=== PATIENT | male | born 1995 ===

== ENCOUNTER 2021-04-13 14:12 | Emergency (ER) | payer OTHER ==
[2021-04-13 14:23] VITALS: TEMP 98.6
[2021-04-13] MEDS ORDERED: LIDOCAINE 1% INJ 10MG/ML (20 ML MDV) SQ ONE ×2 (14:24→16:31)
[2021-04-13] MEDS ORDERED: MORPHINE SULFATE 4 MG/ML SYRINGE IVP STA ×3 (14:26→17:48)
[2021-04-13] MEDS ORDERED: DIPH,PERTUS(ACELL)TETVAC-LF 0.5 ML VIAL IM ONE (14:50)
--- NOTE | 2021-04-13 14:55 | XR ---
EXAMINATION TYPE: XR hand complete RT DATE OF EXAM: 04/13/2021 COMPARISON: NONE HISTORY: 25-year-old male table saw injury to the fingers. Pain. TECHNIQUE: 3 views FINDINGS: There is table saw related soft tissue injury to the third, fourth, and fifth fingers with deep lacer ations and associated comminuted fractures of the third and fourth distal phalangeal shafts and chacho . Oblique minimally offset fracture at the neck of the fifth middle phalanx. No retained radiopaque f oreign body identified. IMPRESSION: 1. Table saw related soft tissue injury/lacerations to the third, fourth, and fifth fingers. 2. Underlying comminuted fractures of the third and fourth distal phalangeal shafts and chacho. 3. Minimally offset oblique fracture at the neck of the fifth middle phalanx.
[2021-04-13 17:06] VITALS: BP 109/60; PULSE 76; RESP 16
--- NOTE | 2021-04-13 17:16 | ED ---
Wound/Laceration HPI - General Chief Complaint: Wound/Laceration Stated Complaint: Hand lac Source: patient, EMS Mode of arrival: EMS Limitations: no limitations - History of Present Illness Initial Comments: Patient is a 25-year-old male that presents to the emergency department with a table saw injury to the right third fourth and fifth digit. He notes he was building door frame door jamb's when he went to the table saw and caught his 3 fingers on the blade was still moving. Patient received 100 g of fentanyl via EMS. He did not appear to be in any distress while sitting up in bed during the exam interview. Patient denied any other complaint or issues. He had full range of motion of his digits minus the tips of his fingers. He had lacerations across the distal aspect of his third and fourth finger and a laceration of the fifth finger in the middle. He denied any chest pain shortness of breath headache nausea vomiting diarrhea constipation fever fatigue chills. - Related Data Previous Rx's Medication Instructions Recorded HYDROcodone/APAP 10-325MG [[place] 1 tab PO Q6HR PRN 3 Days #12 tab 04/13/21 10-325] cefaDROXiL [Duricef] 500 mg PO Q12HR 10 Days #20 cap 04/13/21 Allergies Allergy/AdvReac Type Severity Reaction Status Date / Time No Known Allergies Allergy Verified 04/13/21 15:01 Review of Systems ROS Statement: Those systems with pertinent positive or pertinent negative responses have been documented in the HPI. ROS Other: All systems not noted in ROS Statement are negative. Past Medical History Past Medical History: No Reported History History of Any Multi-Drug Resistant Organisms: None Reported Additional Past Surgical History / Comment(s): right clavicle surgery, plate put in Past Psychological History: No Psychological Hx Reported Smoking Status: Never smoker Past Alcohol Use History: Rare Past Drug Use History: Marijuana General Exam Limitations: no limitations General appearance: alert, in no apparent distress Head exam: Present: atraumatic, normocephalic, normal inspection Eye exam: Present: normal appearance, PERRL, EOMI. Absent: scleral icterus, conjunctival injection, periorbital swelling Neck exam: Present: normal inspection Respiratory exam: Present: normal lung sounds bilaterally. Absent: respiratory distress, wheezes, rales, rhonchi, stridor Cardiovascular Exam: Present: regular rate, normal rhythm, normal heart sounds. Absent: systolic murmur, diastolic murmur, rubs, gallop, clicks Right Hand Wrist exam: Present: laceration (To the distal aspect of the third and fourth digit and the medial aspect of the fifth digit, nail avulsion of the third and fourth digit.). Absent: normal inspection Neurological exam: Present: alert, oriented X3 Psychiatric exam: Present: normal affect, normal mood Skin exam: Present: warm, dry, intact, normal color. Absent: rash Course Vital Signs 04/13/21 14:14 Temperature 98.6 F Pulse Rate 63 Respiratory 18 Rate Blood Pressure 114/72 O2 Sat by Pulse 100 Oximetry Procedures - Laceration Laceration #1 Consent Obtained: verbal consent Indication: laceration Site: hand (Right fifth finger) Size (cm): 5 Description: linear, irregular Depth: simple, single layer Anesthetic Used: lidocaine 1% Anesthesia Technique: nerve block Amount (mls): 4 Pre-repair: irrigated extensively Type of Sutures: nylon Size of Sutures: 5-0 Number of Sutures: 4 Technique: simple, interrupted Complications: bleeding Patient Tolerated Procedure: well, no complications Laceration #2 Consent Obtained: verbal consent Indication: laceration Site: hand (Right fourth finger) Size (cm): 4 Description: irregular Depth: simple, single layer Anesthetic Used: lidocaine 1% Anesthesia Technique: nerve block Amount (mls): 6 Pre-repair: irrigated extensively Type of Sutures: nylon Size of Sutures: 5-0 Number of Sutures: 8 Technique: simple, interrupted Complications: bleeding Patient Tolerated Procedure: well, no complications Laceration #3 Consent Obtained: verbal consent Site: hand (Right third finger) Size (cm): 6 Description: irregular Depth: simple, single layer Anesthetic Used: lidocaine 1% Anesthesia Technique: nerve block Amount (mls): 6 Pre-repair: irrigated extensively Type of Sutures: nylon Size of Sutures: 5-0 Number of Sutures: 8 Technique: simple, interrupted Complications: bleeding Patient Tolerated Procedure: well, no complications Medical Decision Making - Medical Decision Making 25-year-old male with right third fourth and fifth finger laceration from table saw. X-ray of the right hand, 4 mg of morphine, tetanus vaccine, lidocaine, 2 g of Ancef ordered. X-ray shows underlying comminuted fractures of the third and fourth distal phalangeal shaft tops. Minimally offset oblique fracture at the neck of the fifth middle phalanx. Harsha yus was consulted from orthopedics and states that they will follow-up outpatient tomorrow and to send patient home with Duricef and pain medication. Case discussed with Dr. De La Vega, patient can discharge the follow-up to orthopedist. - Radiology Data Radiology results: report reviewed, image reviewed X-ray of the right hand: Table saw a related soft tissue injury laceration to the third fourth and fifth fingers. Underlying comminuted fractures of the third and fourth distal phalangeal shaft and tops. Minimally offset oblique fracture at the neck of the fifth middle phalanx. Disposition Clinical Impression: Laceration, Open fracture Disposition: HOME SELF-CARE Condition: Stable Instructions (If sedation given, give patient instructions): Laceration (ED), Care For Your Stitches (ED) Additional Instructions: Please return to the Emergency Department if symptoms worsen or any other concerns. Follow-up with orthopedics tomorrow in office. Dr. Frederick's his office. Take antibiotics as prescribed until complete. Take pain medication as prescribed. Keep area as clean and is dry as possible. Is patient prescribed a controlled substance at d/c from ED?: No Referrals: None,Stated [Primary Care Provider] - 1-2 days José Miguel Darby DO [Doctor of Osteopathic Medicine] - 1-2 days Time of Disposition: 17:37
== END 2021-04-13 18:05 | disposition home or self-care (01) ==
LOC: EC 14:12
DX: S62.632B Displaced fracture of distal phalanx of right middle finger, initial encounter for open fracture (principal); S62.634B Displaced fracture of distal phalanx of right ring finger, initial encounter for open fracture; S62.636B Displaced fracture of distal phalanx of right little finger, initial encounter for open fracture; Z23 Encounter for immunization; W31.2XXA Contact with powered woodworking and forming machines, initial encounter; F12.90 Cannabis use, unspecified, uncomplicated
CPT/HCPCS: 73130; 90715; 12005; 99284; 96365; 96375 ×2; 90471; J2270; J0690; J2001

== ENCOUNTER 2021-04-18 09:56 | Day surgery (SDC) | payer OTHER ==
[2021-04-14 15:46] VITALS: BMI 31.4
--- NOTE | 2021-04-18 06:49 | P.HPOR ---
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 He presents to the office following a traumatic finger injury sustained on 04/13/2021 when his hand got caught in a table saw. He did go to the [facility] emergency room the same day where he received xrays, the injury was cleaned, sutured, and bandaged. He was then referred to Dr. Darby for further evaluation. He is currently on a prescription of [place] 10mg for pain management with good effect. He describes his pain as a 1/10 today in the office. The injury is acute in nature and the patients 3rd, 4th, and 5th fingers are the ones that sustained the injury. Patient denies any issues with his bowels or incontinence. Patient denies being a smoker but does use tobacco chew. Mr. Joseph's only other prior surgery was a collar bone procedure done in 2010, which he has since recovered from. He is otherwise doing well. The patient's past medical history; past surgical history; family history; medicines; allergies and social history have been reviewed and are as stated elsewhere in the chart. 14 points review of systems completed and as stated in HPI, all other systems reviewed are negative. PHYSICAL EXAM: Patient is alert and oriented 3 appears well-nourished well-hydrated is in no acute distress. They do not appear septic. There is TTP Lower extremities with 5 out of 5 strength in all major muscle groups Upper extremities show 5/5 strength in all major muscle groups. Except for R hand where his ulnar three digits M/R/Sm have distal tip partial amputations. There is FROM that is painless of the b/l UE and LE in all major joints. DIP and PIP as well as MCP joits mobile. Except for the injuried. They are intact to light touch sensation in L2 to S1 nerve distribution as well as the C5-T1 distribution DTR 2/4 all upper and lower extremities Patient has palpable dorsalis pedis was posterior tibial pulses. Palpable Rad Ulnar pulses b/l Compartments are soft and compressible. Patient shows a negative Homans Cranial nerves II through XII are grossly intact. Special Testing: Right hand: M/R/Sm finger partial distal tip amputations at the level of the distal phalynx. No current exposed bone in any fingers. There is a nail bed avulsion of the middle finger as well as distal tuft fractures of the M and R fingers. Sm finger has a middle phalnyx fracture at the distal aspect. Non displaced. There is good soft tissues in this area despite injury and good cap refill to these areas. There is sensation to LT and to pinprick distal tips of all fingers at this time. RADIOGRAPHS: XRay taken on 04/13/21 of right hand was reviewed by Dr. Cage and indicates: Distal tuft fractures, open of the M and R fingers. Middle is comminuted with bone voids. The ring finger fracture is a large fragmet distally and will reduce with fixation of the tuft likely. The small finger fracture is at the distal end of the middle phalynx. No other malalignment. No othe fractures or dislocations noted. ASSESSMENT: 1. Traumatic table saw injury to the 3rd, 4th, and 5th digits on the right hand. 2. Right middle finger and ring finger Partial distal tip truamatic amputation. 3. Right small finger complex laceration with middle phalynx fracture PLAN: All options were reviewed today, we decided the best course of action would be: - We will plan on a revision amputation and reconstruction of the 3rd, 4th, and 5th digits on the right hand. This is scheduled to be done on 04/18/2021. - Follow up for further evaluation of his right hand after the procedure. -Ordered a CBC, BMP, EKG, and LAR discussed risks and benefits of the procedure the patient including risk of bleeding infection damage to surrounding tissues and risk of reoperation risk of anesthesia up to and including he is willing to assume these risks and all of the other risks of surgery. Orthopedic Surgery Risk Review Billy Joseph is a 75-year-old male presenting for evaluation of sudden onset right hand pain, after table saw injury. It was my pleasure to have seen and examined Billy. In our visit today we have had a chance to go over subjective complaints, physical examination findings and treatments including the natural course history without intervention and various interventional options. His imaging demonstrates comminuted tuft fractures middle finger finger as well as ring finger with distal middle phalanx fracture right small finger. On physical exam, Billy demonstrates pain with motion of right hand due to nail bed injuries as well as distal tuft fractures and partial amputation, which is NV intact at this time. I have explained to the patient that this fracture needs stabilization. Based on the patients imaging, physical exam, and the rapid progression and disabling nature of her symptoms, at this time I recommend surgery in the form or a: Irrigation and debridement of right middle ring and small finger as well as nail bed repair and possible revision amputation I discussed the risk and benefits of this procedure at length with Billy. Questions were invited and answered, and the patient wishes to proceed as outlined below. Currently, I am recommendin. Irrigation and debridement of right middle ring and small finger as well as nail bed repair and possible revision amputation 2. Review of surgical risks and benefits as well as an educational packet on the proposed surgical procedure. Risks: All surgical procedures come with inherent risks, including those related to positioning, anesthesia, intraoperative findings, and postoperative complications. It is important to understand that surgery does not come with any guarantee of a successful outcome as complications and adverse events are always possible. The patient was given a handout discussing the surgical procedure and risks associated with the intervention, both of which were discussed with the patient. These risks include but are not limited to the following: - Experiencing same, different or even worse symptoms compared to before surgery. - Requiring further surgery or other forms of treatment presently or at some time in the future . - On an extreme but fortunately relatively rare basis severe complication such as blindness, stroke, heart attack, temporary and/or permanent nerve injury, paralysis, coma, or may occur, sometimes without known explanation. - Surgical complications may include but are not limited to risk of infection, fluid accumulation in the surgical dissection site, including a seroma or hematoma, that requires additional surgery, wound drainage, bleeding, new numbness or weakness, vision changes/loss, spinal fluid leakage, non-healing and/or infected incision, headaches, difficulty or inability to swallow, hoarseness, hemopneumothorax, pneumothorax, injury to nerves, spinal cord, blood vessels, lymphatics or other vital organs (i.e., bowel injury, injury to the great vessels); heterotopic bone formation; complications related to the hardware such as screws, rods, including misplaced hardware, device failure, hardware fracture/breakage, or hardware loosening; retained surgical instrumentations or devices and the need for further surgery. - Medical risks of the planned surgery include but are not limited to generalized Infections to the whole body or local areas outside of the surgical site (sepsis), heart attack, bleeding, anaphylaxis, meningitis, seizure, epilepsy, hearing loss, burn [place], laceration of the head or other areas of the body, bruising, hypersensitivity of the skin, bladder over distension; allergic reaction; shoulder injury related to positioning; fat, blood and air clots to other areas of the body like heart, lungs, brain; failure of internal organs such as lungs, kidneys, liver and excessive bleeding. If blood transfusions are necessary, note that transfusions may cause intolerance reactions such as anaphylaxis or other complex reactions. Despite best efforts, the results of surgery might not heal in terms of bone, soft tissues such as skin, fascia, ligaments, and joints. [facility] is an educational center that serves as a training facility for physician assistants, nurses, orthopedic residents and fellows. Residents are physicians who are completing their surgical intensive training following medical school. They assist in the operating room with direct supervision of the attending surgeons. Mccune are surgeons who have completed their training and eligible for board certification. They have opted for an elective year of more specialized training in their field. They assist in the operating room under the supervision of the attending surgeons. Physician assistants are medically trained surgical providers who function in the outpatient, inpatient, and operating room setting under the direct supervision of the attending colton diez. [facility] has multiple operating rooms with single and overlapping rooms running daily. They currently function under the required guidelines as produced by the [facility] Finance Committee with regards to the overlapping rooms and will continue to comply with changes to this policy as they occur. The requirements include and are complied with as follows: (1) the critical portions of the overlapping rooms will not occur at the same time, (2) the attending physician will be physically present during the critical portions of the procedure and immediately available during the entire case, and (3) a back-up attending is designated should the primary attending not be immediately available. The patient has had a chance to review all the listed information, has been given print outs detailing this information, and has had all his/her questions answered to their satisfaction. It was my pleasure to have seen and examined Billy Joseph. In our visit today we have had a chance to go over my understanding of our patient's current condition, the natural course history without intervention and various interventional options. Questions were invited and answered, and the patient wishes to proceed as outlined above. I have seen and examined the patient for 25 minutes and we have spent more than 50% of the time in repeat and detailed counseling about the patient's condition, its natural course history with out and as much as can be predicted with surgery and re-review of various surgical treatment options. In conclusion, Billy Joseph requested we proceed with the above suggested surgery and are willing to accept risks and limitations of the suggested surgery as nature of the disease process and our best attempts at treatment for the condition. Thank you again for allowing us to be part of your patient's care. Please don't hesitate to contact me if you have any further questions. Signed and authenticated by: José Miguel Dawkinson [facility] [address] [address] Past Medical History Past Medical History: No Reported History Additional Past Medical History / Comment(s): table saw accident yesterday & injured 3rd, 4th & 5th fingers right hand History of Any Multi-Drug Resistant Organisms: None Reported Additional Past Surgical History / Comment(s): right clavicle surgery, plate put in Past Anesthesia/Blood Transfusion Reactions: No Reported Reaction Smoking Status: Never smoker - Past Family History Mother Family Medical History: No Reported History Medications and Allergies Home Medications Medication Instructions Recorded Confirmed Type HYDROcodone/APAP 10-325MG [[place] 1 tab PO Q6HR PRN 3 Days #12 tab 04/13/21 04/14/21 Rx 10-325] cefaDROXiL [Duricef] 500 mg PO Q12HR 10 Days #20 cap 04/13/21 04/14/21 Rx Allergies Allergy/AdvReac Type Severity Reaction Status Date / Time No Known Allergies Allergy Verified 04/14/21 15:42 Physical Examination Osteopathic Statement: *. No significant issues noted on an osteopathic structural exam other than those noted in the History and Physical/Consult.
[~2021-04-18 09:56] MED LIST: DEXAMETHASONE SOD PHOSPHATE 4 MG/ML 1 ML VIAL IV ONE; HYDROmorphone 0.5 MG/0.5 ML SYRINGE IVP PRN; LACTATED RINGERS 1,000 ML IV SCH; LIDOCAINE 1% (10MG/ML) FOR IV START INTRADERMA PRN; MIDAZOLAM 2 MG/2 ML VIAL IV PRN; ONDANSETRON 4 MG/2 ML VIAL IVP ONE
[2021-04-18] MEDS ORDERED: MIDAZOLAM 2 MG/2 ML VIAL IVP ONE (10:45)
[2021-04-18] MEDS ORDERED: fentaNYL (PF) 50 MCG/ML 2 ML AMP IVP ONE (10:46)
[2021-04-18] MEDS ORDERED: DEXAMETHASONE SOD PHOSPHATE 4 MG/ML 1 ML VIAL ONE (12:42)
[2021-04-18] MEDS ORDERED: LIDOCAINE 1% INJ 10MG/ML (20 ML MDV) ONE (12:42)
[2021-04-18] MEDS ORDERED: fentaNYL (PF) 50 MCG/ML 2 ML AMP ONE (12:42)
[2021-04-18] MEDS ORDERED: PROPOFOL 10 MG/ML 20 ML VIAL IV ONE (12:42)
[2021-04-18] MEDS ORDERED: ROPIVACAINE 5 MG/ML 30 ML VIAL ONE (12:42)
[2021-04-18] MEDS ORDERED: ceFAZolin 1,000 MG in SODIUM CHLORIDE 0.9% 1,000 ML IRRIGATION ONE (13:18)
--- NOTE | 2021-04-18 14:01 | P.ANPRN ---
Procedure Note - Anesthesia - Nerve Block Performed Right Axillary Single Time Out Performed: Yes Date of Procedure: 04/18/21 Procedure Start Time: 10:45 Procedure Stop Time: 10:55 Location of Patient: PreOp Indication: Acute Post-Operative Pain, Dx/Pain Location, Requested by Surgeon Specifically requested for management of pain by DrGeneva: José Miguel Darby Sedation Type: Sedate with meaningful contact maintained Preparation: Sterile Prep Position: Supine Catheter: None Needle Types: Facet Needle Gauge: 20 Ultrasound used to visualize needle placement: Yes Ultrasound used to observe medication spread: Yes Injectate: 0.5% Ropivacaine (see comment for volume) Blood Aspirated: No Pain Paresthesia on Injection Noted: No Resistance on Injection: Normal Image Stored and Saved: Yes Events: Uneventful and Well Tolerated (20cc 0.5% ropicavaine)
[2021-04-18] MEDS ORDERED: BACITRACIN ZINC 500 UNIT/GM OINT 28.4 GM TUBE TOPICAL ONE (14:30)
[2021-04-18 14:54] VITALS: TEMP 98
[2021-04-18 15:31] VITALS: RESP 16
[2021-04-18 16:16] VITALS: BP 108/73; PULSE 74
--- NOTE | 2021-04-19 15:31 | OP ---
OPERATIVE REPORT DATE OF SERVICE: 04/19/2021. PREOPERATIVE DIAGNOSES: 1. Right hand middle, ring and small finger traumatic partial tip amputations. 2. Right middle finger open tuft fracture with nail bed injury. 3. Right ring finger open tuft fracture with nail bed injury. 4. Right small finger open middle phalanx fracture with extensor tendon injury. 5. Status post table saw injury. POSTOPERATIVE DIAGNOSES: 1. Right hand middle, ring and small finger traumatic partial tip amputations. 2. Right middle finger open tuft fracture with nail bed injury. 3. Right ring finger open tuft fracture with nail bed injury. 4. Right small finger open middle phalanx fracture with extensor tendon injury. 5. Status post table saw injury. PROCEDURES PERFORMED: 1. Irrigation debridement of right middle, ring and small finger open fractures using the following: Knife and scissors were used to remove devitalized soft tissue skin and nail bed. Rongeur was used to remove devitalized bone and irrigate. 2. Nailbed repair of right middle and ring finger. 3. Germinal matrix ablation of right ring and middle finger. 4. Right small finger percutaneous fixation for middle phalanx fracture. 5. Right small finger extensor tendon repair. 6. Complex laceration repair of the right middle, ring and small finger totaling 8 cm. IMPLANTS: 1 45 K-wire. ANESTHESIA: LMA with regional block. SURGEON: José Miguel Darby D.O. ESTIMATED BLOOD LOSS: 50 mL. IV FLUIDS: 1000. URINE OUTPUT: 0. PATHOLOGY: None sent. COMPLICATIONS: None. DISPOSITION: Stable to the postoperative care unit. INDICATIONS FOR PROCEDURE: This is a 25-year-old right-hand dominant male who presented to the emergency department after a table saw injury to his right hand. The patient states he was trying to cut a board when he slipped, causing a complex laceration to his middle ring and small finger on the right-hand side. He was seen in the emergency department where they irrigated him out and then provisionally closed distal tip of his fingers with nylon sutures and dressed sterilely. He was following up in office. He follow up with us in office. He was evaluated and we decided that a revision amputation versus irrigation debridements with possible salvage procedure was warranted for his right hand and he agreed to this. The patient was seen preoperatively. All preop protocols followed. The patient was seen by Department of Anesthesia and deemed fit for surgery. An interscalene block was performed by Department of Anesthesia. The patient's right arm for pain control. The site was marked. The patient was given a weight based dose of antibiotics in the form of Ancef. Consent was confirmed and he was willing to proceed with the procedure. We discussed risks and benefits again as outlined in the risks reviewed. We discussed risk of reoperation, the possibility of need for revision amputation of these fingers afterwards, but we will do our best to save all weekend. He agreed to this. He is willing to proceed with the procedure. OPERATIVE REPORT: The patient is transferred to the operative suite and placed supine on the operating table. An arm board was placed underneath the right arm. The patient was secured to the table with safety strap. All bony prominences were padded accordingly. SCDs were placed. The patient's lower extremities bilaterally. He was then drifted off to sleep by Department of Anesthesia. Once adequate anesthesia was obtained, the patient's right arm, tourniquet was placed around the patient's right upper arm and secured. Briefing was done and all parties ready for operation. The patient's right arm was then prepped and draped in normal sterile fashion. Time-out was performed. All parties were in agreement and agreed with procedure to be performed. We first proceeded with irrigation and debridement of the middle, ring and small finger as well as assessment of the injury. Normal sterile saline was used for this. We then debrided out any of the soft tissue, skin and bone that was devitalized using knife scissors and rongeur. We then used a Wilburn to clean out somewhat of the fat pad. There was some devitalized bone that was removed from the distal tuft of the right middle finger where there was an open tuft fracture nail bed injury and essentially germinal matrix devitalization. There were small parts of the germinal matrix available. However, these were nonviable and so it was elected at this time to ablate the germinal matrix of the right middle finger. Once this was completed using electrocautery, we proceeded with a complex closure of this area and reduction of open fracture as well as nailbed repair. We used 4-0 chromic to repair the laceration that was near circumferential around the distal tip of the right middle finger. We then affixed the nail bed in place and repaired the sterile matrix. There was a small part of the nail plate distally that was still attached and this was removed atraumatically. We then sutured these in place. Once this was reduced and stable, we turned our attention to the right ring finger. The nail plate was still in place and so this was removed. The sterile matrix was still somewhat intact. However, the saw had come directly through the germinal matrix of the right ring finger as well and this was not salvageable, so it was elected at this time to do nail plate ablation. We ablated the germinal matrix or what was left of it using electrocautery of the right ring finger. Once this was ablated and irrigated and debrided, we proceeded with a complex repair of near circumferential cut of the right ring finger distal phalanx area. The distal phalanx was reduced and the skin edges approximated using 4-0 chromic. We then performed a nail bed repair using 4-0 chromic in this area of the sterile matrix. Once this was reduced and stable, we turned our attention to the small finger. Small finger was visualized and it had a laceration on the dorsal aspect just proximal to the DIP joint and into the middle phalanx at the distal on the radial side. This was a 2 cm laceration. Over the midportion of it, there was extensor tendon injury and so this was visualized and repaired using a 4-0 Vicryl. We then repaired the complex laceration using 4-0 chromic. In order to fixate the fracture as well as allow for extensor tendon healing, a pin was placed distally into the small finger longitudinally crossing the DIP joint in an extended position to allow for healing in this area as well as fixation of the fracture. This was done under AP and lateral fluoroscopy with the mini fluoro. Once pin was in good position, we thoroughly irrigated the wounds once again using normal sterile saline. The wounds were then cleaned sterilely and dressed with bacitracin, Adaptic, 4x4s, Mike wrap, as well as Webril. He was then placed in a volar splint with his fingers in extension to allow for good healing in the extended position and for extensor tendon healing. This was then overwrapped with an Tal wrap. The patient was then awakened by the Department of anesthesia and tolerated the procedure very well. No complications. He was then transferred to the postoperative care unit in stable condition. MMODL / IJN: [id number] /
== END 2021-04-18 16:54 | disposition home or self-care (01) ==
LOC: OR 09:56
PROVIDERS: ATTEND Orthopaedic Surgery
DX: S62.626B Displaced fracture of middle phalanx of right little finger, initial encounter for open fracture (principal); S62.662B Nondisplaced fracture of distal phalanx of right middle finger, initial encounter for open fracture; S62.664B Nondisplaced fracture of distal phalanx of right ring finger, initial encounter for open fracture; W31.2XXA Contact with powered woodworking and forming machines, initial encounter
CPT/HCPCS: 25607; 25606; 11012; 26418; 11760; 64415; 76942; C1713; J2250; J1100; J0690 ×2; J2405; J2001; J3010; J2795; J2704; J1170

== ENCOUNTER → 2021-07-19 | Outpatient (CLI) | payer OTHER ==
--- NOTE | 2021-07-19 15:29 | CT ---
EXAMINATION TYPE: CT brain wo con DATE OF EXAM: 07/19/2021 COMPARISON: None INDICATION: migraines DLP: 995.5 mGycm, Automated exposure control for dose reduction was used. CONTRAST: None CT of the brain is performed utilizing 3 mm thick sections through the posterior fossa and 3 mm thick sections through the remaining calvarium. Study is performed within 24 hours of arrival to the hosp [facility]. No abnormal hyperdensity is present to suggest an acute intracranial hemorrhage. No mass lesion is evident. No acute infarcts are evident. Ventricles and sulci are appropriate for the patient age. Paranasal sinuses and mastoid air cells within the [id number]-oc-acaf are clear. IMPRESSIONS: 1. Normal CT Brain
== END | disposition home or self-care (01) ==
LOC: RADCTMAIN 14:32
PROVIDERS: ATTEND Family Medicine
DX: G43.909 Migraine, unspecified, not intractable, without status migrainosus (principal)
CPT/HCPCS: 70450

== ENCOUNTER 2021-08-16 08:54 | Day surgery (SDC) | payer OTHER ==
[2021-08-09 13:35] VITALS: BMI 31.4
--- NOTE | 2021-08-14 09:24 | P.HPOR ---
History of Present Illness H&P Date: 08/14/21 Chief Complaint: Right ring finger and right middle finger nail deformity s/p revision amp. Subjective: This is a 25 year old male that presents today for initial evaluation regarding persistent nail deformities of his right ring and middle fingers after undergoing revision amputations with Dr. Darby in April of 2021 for table saw injuries to his right ring and middle fingers. He states he has painful nail spikes that have developed over time that he constantly has to trim, the middle finger nail plate is now starting to push into the surrounding skin causing pain and irritation. He has no new injury since then and has noticed no drainage or signs of infection. Physical Examination: RUE: AIN/PIN/Radial/Ulnar/Median motor intact. Radial/Ulnar/Median SILT. 2+/4 Radial/Ulnar pulses palpated. RMF: FDP/EDC intact. 1-2mm nail plate growths and proximal ulnar and distal radial portion of dorsal tip of finger. Nailbeds have scarred over. The proximal ulnar portion appears to be growing into the skin rather than superficial to it. A volar free floating ellen prominence is also felt at the volar tip. RRF: 1-2 mm nail plate growth over dorsal ulnar aspect of finger tip. FDP/FDS/Extensor tendon intact. Imaging: Xrays of RRF demonstrate likely fibrous union of comminuted distal phalanx fracture. Xrays of RMF demonstrate fibrous malunion of comminuted distal phalanx fracture with sharp appearing ellen fragment directed at volar pulp of digit. 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 Patient wished to proceed with surgery after discussing risks and benefits of surgery including persistent nail growth, bleeding, infection and damage to surrounding tissue. We discussed he will be able to perform only clean dry left handed work only until post op week 4 to 6 depending on how his soft tissues heal. -Torito Jc DO Orthopedic Hand/Upper Extremity Surgeon Past Medical History Past Medical History: No Reported History Additional Past Medical History / Comment(s): Migraines. History of Any Multi-Drug Resistant Organisms: None Reported Past Surgical History: Orthopedic Surgery Additional Past Surgical History / Comment(s): Right clavicle surgery, titanium plate put in, surgery to right middle, ring and baby fingers. Past Anesthesia/Blood Transfusion Reactions: No Reported Reaction Past Psychological History: No Psychological Hx Reported Smoking Status: Never smoker Past Alcohol Use History: Rare Additional Past Alcohol Use History / Comment(s): Chews tobacco. Past Drug Use History: Marijuana Additional Drug Use History / Comment(s): Rare Marijuana use. - Past Family History Mother Family Medical History: No Reported History Father Family Medical History: Cancer Medications and Allergies Home Medications Medication Instructions Recorded Confirmed Type Acetaminophen [Tylenol Extra 500 - 1,000 mg PO Q4-6H PRN 08/09/21 08/09/21 History Strength] Allergies Allergy/AdvReac Type Severity Reaction Status Date / Time No Known Allergies Allergy Verified 08/09/21 13:25 Physical Examination Osteopathic Statement: *. No significant issues noted on an osteopathic structural exam other than those noted in the History and Physical/Consult.
[2021-08-16] MEDS ORDERED: LACTATED RINGERS 1,000 ML IV SCH (09:33)
[2021-08-16] MEDS ORDERED: ONDANSETRON 4 MG/2 ML VIAL IVP ONE (09:33)
[2021-08-16] MEDS ORDERED: MIDAZOLAM 2 MG/2 ML VIAL IV PRN (09:33)
[2021-08-16] MEDS ORDERED: SCOPOLAMINE 1.5MG/72HR PATCH TRANSDERM ONE (09:33)
[2021-08-16] MEDS ORDERED: HYDROmorphone 0.5 MG/0.5 ML SYRINGE IVP PRN (09:33)
[2021-08-16] MEDS ORDERED: DEXAMETHASONE SOD PHOSPHATE 4 MG/ML 1 ML VIAL IV ONE (09:33)
[2021-08-16] MEDS ORDERED: LIDOCAINE 1% (10MG/ML) FOR IV START IV ONE (09:53)
[2021-08-16] MEDS ORDERED: MIDAZOLAM 2 MG/2 ML VIAL ONE (09:55)
[2021-08-16] MEDS ORDERED: PROPOFOL 10 MG/ML 20 ML VIAL IV ONE (09:55)
[2021-08-16] MEDS ORDERED: LIDOCAINE 1% INJ 10MG/ML (20 ML MDV) ONE (09:55)
[2021-08-16] MEDS ORDERED: fentaNYL (PF) 50 MCG/ML 2 ML AMP ONE (09:55)
[2021-08-16] MEDS ORDERED: BUPIVACAINE (PF) 0.5% 30 ML VIAL SQ ONE (10:17)
[2021-08-16] MEDS ORDERED: LIDOCAINE 1% INJ 10MG/ML (20 ML MDV) SQ ONE (10:17)
[2021-08-16 11:14] VITALS: TEMP 97
[2021-08-16] MEDS ORDERED: KETOROLAC 30 MG/ML 1 ML VIAL ONE (11:46)
[2021-08-16] MEDS ORDERED: KETOROLAC 15 MG/ML 1 ML VIAL IVP ONE (11:48)
[2021-08-16 12:20] VITALS: PULSE 67
[2021-08-16 12:35] VITALS: BP 118/67; RESP 18
--- NOTE | 2021-08-16 18:15 | P.OP ---
Date of Procedure: 08/16/21 Preoperative Diagnosis: 1.) Right ring finger painful ingrown nail s/p revision amputation. 2.) Right middle finger painful ingrown nail s/p revision amputation. 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 Postoperative Diagnosis: 1.) Right ring finger painful ingrown nail s/p revision amputation. 2.) Right middle finger painful ingrown nail s/p revision amputation. 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 Procedure(s) Performed: 1.) Right ring finger nail plate removal 2.) Right ring finger germinal nailbed ablation 3.) Right middle finger nail plate removal 4.) Right middle finger germinal nailbed ablation 5.) Right middle finger revision amputation of symptomatic distal phalanx malunion ([id number]). Anesthesia: GETA Surgeon: Torito Jc Estimated Blood Loss (ml): 0 Pathology: none sent Condition: stable Disposition: PACU Operative Findings: This is a 25 year old male who presents today for right ring and middle finger nailplate excisions and revision amputation of right middle finger. Patient sustained a table saw injury in March of 2021 and underwent revision amputations of the ring and middle fingers. Over the past several months he has developed painful ingrown nails due to residual germinal matrix presence. His right middle finger also has healed in a fashion leaving a large bony spike on the volar surface of his finger tip that has become painful and symptomatic over the past several months. Risks and benefits of surgery were discussed with the patient including bleeding, damage to surrounding tissue, infection, need for further surgery, nail recurrence, as well as risks of anesthesia including pulmonary embolism and even and the patient wished to proceed with surgical intervention. The patient was seen in the pre-operative area by myself. Consent and H&P were completed and updated. The correct extremity was marked in the pre- operative area by myself and all other questions were answered. Operative Narrative: The patient was brought to the operating room by the department of anesthesia. They remained on the portable stretcher and a rolling hand table was brought to the side of the operative extremity. Pre-operative time out was performed indicating the correct patient, procedure and laterality. All in the room agreed. Pre-operative antibiotics were given prior to skin incision. The patient was then drifted off to sleep by the department of anesthesia. A nonst erile tourniquet was then applied to the operative extremity and the right upper extremity was then prepped and draped in normal sterile fashion. The operative extremity was the exsanguinated with an esmarch bandage and the tourniquet was inflated to 250mmHg. 15 blade scalpel was used to elipse out a nail horn on the radial border of the ring finger down to distal phalanx. Rongeur was used to remove germinal matrix nailbed remnants. A needle tip bovie was the used to cauterize and ablate the germinal matrix. The ingrown nail plate that was on the ulnar boarder of the fing finger was excised utilizing a hemostat and 15 blade scalpel. Scalpel and rongeur were then used to excise the germinal nailbed remnants and needle tip bovie was used to cauterize and ablate the germinal matrix. The ring finger wound was then irrigated with sterile saline and skin closure was performed with several interrupted 4-0 nylon sutures. Attention was then brought the the middle finger. In a similar fashion, the seperate radial and ulnar nail plate growths were excised using a hemostat and 15 blade scalpel. Longitudinal incision was made at the level of the remaining eponychial fold to uncover the remaining germinal matrix. Scalpel and rongeur were used to excise the germinal nailbed remnants and needle tip bovie was used to cauterize and ablate the germinal matrix. Lastly, a volar longitudinal incision was made around the area of large bony prominence of the distal phalanx that was palpated subcutaneously at the tip of the middle finger. Blunt dissection was taken down to distal phalanx and a rongeur was used to remove the excess symptomatic distal phalanx until a smooth round edge was appreciated. Mini-C arm was then used to confirm removal of large bony spur and the volar surface appeared to now be smooth and flush. The wounds were then irrigated and closure was performed with 4-0 nylon sutures. Digital nerve blocks using a 50:50 mixture of 1% lidocaine and 0.5% bupivicaine was performed to the ring and middle fingers, 10cc's total was utilized. Sterile dressing consisting of bacitracin, adaptic, 4x4s, webril and cast padding was applied. The patient was then woken by the department of anesthesia and transferred to PACU in stable condition. Torito Jc D.O. Orthopedic Hand/Upper Extremity Surgeon
== END 2021-08-16 13:02 | disposition home or self-care (01) ==
LOC: OR 08:54
PROVIDERS: ATTEND Orthopaedic Surgery Hand Surgery
DX: L60.0 Ingrowing nail (principal)
CPT/HCPCS: 26951; J2250; J1100; J0690; J2405; J2001; J3010; J1885; J2704